=== PATIENT | male | born 1965 | race Caucasian/White ===

== ENCOUNTER 2019-03-19 08:27 | Inpatient (IN) ==
[2019-03-19] MEDS ORDERED: ALBUTEROL 1.25 MG/3 ML NEB RESP TX PRN (10:43)
[2019-03-19] MEDS ORDERED: ACETAMINOPHEN 325 MG TABLET PO PRN (10:47)
[2019-03-19] MEDS ORDERED: ONDANSETRON 4 MG/2 ML VIAL IV PRN (10:47)
[2019-03-19 11:19] LABS: Basophils % 0.2 % (0.0-0.8); Eosinophils % 0.1 % (0.00-10.9); Hematocrit 57.1 VOL% (42.0-52.0); Hemoglobin 17.8 GM/DL (14.0-18.0); Immature Granulocytes % 0.6 %; Immature Granulocytes Absolute 0.06 #; Lymphocytes # 0.5 10*3/uL (1.4-4.0); Lymphocytes % 4.5 % (21.2-54.2); Mean Corpuscular HGB Conc 31.2 GM/DL (32-36); Mean Corpuscular Volume 91.8 FL (87-102); Monocytes % 0.9 % (1.7-12.7); Neutrophils % 93.7 % (38.7-73.9); Platelet Count 299 T/CUMM (130-400); Red Blood Count 6.22 MC/CUMM (3.8-5.5); White Blood Count 10.5 T/CUMM (4-12)
[2019-03-19] MEDS: ALBUTEROL/IPRATROPIUM 3 ML NEB RESP TX SCH ×2 (11:35→14:50)
[2019-03-19 11:39] LABS: Band Neutrophils 1 % (0-10); Lymphocytes 7 % (20-55); Platelet Estimate Adequate; Segmented Neutrophils 92 % (50-85); Total Cells Counted 100
[2019-03-19 11:43] LABS: Albumin 3.9 G/DL (3.4-5.0); Bilirubin,Total 0.7 MG/DL (0.2-1.0); Calcium 9.3 MG/DL (8.5-10.1); Osmolality,Calculated 288.3 MOS/KG (273-304)
[2019-03-19] MEDS ORDERED: methylPREDNISolone SOD SUC 40 MG/1 ML VIAL IV SCH (12:00)
[2019-03-19 12:53] LABS: ABG Base Excess -1.7 MMOL/L (-2.5-2.5); ABG HCO3 22.4 MMOL/L (20-26); ABG Oxygen Saturation 76.6 % (95-100); ABG PCO2 64.6 MM HG (35-48); ABG PH 7.252 (7.35-7.45); ABG PO2 45.6 MM HG (80-95); ABG TCO2 24.1 MMOL/L (23-27)
[2019-03-19] MEDS: NICOTINE 21 MG/24 HR PATCH TRANSDERM SCH (13:07)
[2019-03-19] MEDS: SERTRALINE 50 MG TABLET PO SCH (13:14)
[2019-03-19] MEDS: LISINOPRIL 10 MG TABLET PO SCH (13:14)
[2019-03-19] MEDS: LEVOFLOXACIN INJ 500 MG in PREMIX 1 EACH IV SCH (17:28)
[2019-03-19] MEDS: guaiFENesin/DM ER 600-30 MG TABLET PO SCH (17:28)
[2019-03-19] MEDS: DORNASE ALFA 2.5 MG/2.5 ML VIAL RESP TX SCH (19:55)
[2019-03-19] MEDS: BUDESONIDE 0.5 MG/2 ML NEB RESP TX SCH (19:55)
[2019-03-19] MEDS: ARFORMOTEROL 15 MCG/2 ML NEB RESP TX SCH (19:55)
[2019-03-19] MEDS: methylPREDNISolone SOD SUC 40 MG/1 ML VIAL IV SCH (21:54)
[2019-03-19] MEDS: MONTELUKAST 10 MG TABLET PO SCH (21:57)
[2019-03-19] MEDS: DOCUSATE SODIUM 100 MG CAPSULE PO SCH (21:57)
[2019-03-19] MEDS: buPROPion SR 100 MG TABLET PO SCH (21:57)
[2019-03-19] MEDS: ENOXAPARIN 40 MG/0.4 ML SYRINGE SUBCUT SCH (21:58)
[2019-03-19] MEDS: traZODone 50 MG TABLET PO PRN (22:03)
[2019-03-20] MEDS: methylPREDNISolone SOD SUC 40 MG/1 ML VIAL IV SCH ×4 (02:57→21:49)
[2019-03-20 04:00] LABS: ABG Base Excess 1.7 MMOL/L (-2.5-2.5); ABG HCO3 25.6 MMOL/L (20-26); ABG Oxygen Saturation 86.4 % (95-100); ABG PCO2 62.6 MM HG (35-48); ABG PO2 55.3 MM HG (80-95); ABG TCO2 26.1 MMOL/L (23-27)
[2019-03-20] MEDS: ALBUTEROL/IPRATROPIUM 3 ML NEB RESP TX SCH ×6 (04:30→23:53)
[2019-03-20 06:11] LABS: Basophils % 0.1 % (0.0-0.8); Hemoglobin 16.4 GM/DL (14.0-18.0); Immature Granulocytes % 0.7 %; Immature Granulocytes Absolute 0.08 #; Lymphocytes # 0.8 10*3/uL (1.4-4.0); Lymphocytes % 7.2 % (21.2-54.2); Mean Corpuscular HGB Conc 30.9 GM/DL (32-36); Mean Corpuscular Volume 91.7 FL (87-102); Mean Platelet Volume 10.1 FL (9.6-12.0); Monocytes % 2.6 % (1.7-12.7); Neutrophils % 89.4 % (38.7-73.9); Platelet Count 252 T/CUMM (130-400); Red Blood Count 5.78 MC/CUMM (3.8-5.5); Red Cell Distribution Width 13.7 % (9.3-17.3); White Blood Count 11.2 T/CUMM (4-12)
[2019-03-20 06:21] LABS: Calcium 8.8 MG/DL (8.5-10.1); Osmolality,Calculated 280.7 MOS/KG (273-304)
[2019-03-20] MEDS: ARFORMOTEROL 15 MCG/2 ML NEB RESP TX SCH ×2 (07:30→19:41)
[2019-03-20] MEDS: BUDESONIDE 0.5 MG/2 ML NEB RESP TX SCH ×2 (07:30→19:41)
[2019-03-20] MEDS: DORNASE ALFA 2.5 MG/2.5 ML VIAL RESP TX SCH ×2 (07:35→19:41)
[2019-03-20] MEDS: buPROPion SR 100 MG TABLET PO SCH ×2 (08:15→21:52)
[2019-03-20] MEDS: MONTELUKAST 10 MG TABLET PO SCH ×2 (08:15→21:53)
[2019-03-20] MEDS: NICOTINE 21 MG/24 HR PATCH TRANSDERM SCH (08:15)
[2019-03-20] MEDS: DOCUSATE SODIUM 100 MG CAPSULE PO SCH ×2 (08:15→21:51)
[2019-03-20] MEDS: guaiFENesin/DM ER 600-30 MG TABLET PO SCH (08:16)
[2019-03-20] MEDS: PANTOPRAZOLE 40 MG TABLET PO SCH (08:16)
[2019-03-20] MEDS: LISINOPRIL 10 MG TABLET PO SCH (08:16)
[2019-03-20] MEDS: SERTRALINE 50 MG TABLET PO SCH (08:16)
[2019-03-20] MEDS: LEVOFLOXACIN INJ 500 MG in PREMIX 1 EACH IV SCH (08:24)
[2019-03-20] MEDS ORDERED: THEOPHYLLINE ER (24 HR) 300 MG CAPSULE PO SCH (09:00)
[2019-03-20] MEDS: THEOPHYLLINE ER (24 HR) 400 MG CAPSULE PO SCH (10:55)
[2019-03-20] MEDS: ENOXAPARIN 40 MG/0.4 ML SYRINGE SUBCUT SCH (21:53)
[2019-03-20] MEDS: traZODone 50 MG TABLET PO PRN (21:53)
[2019-03-21] MEDS: methylPREDNISolone SOD SUC 40 MG/1 ML VIAL IV SCH ×4 (02:38→23:09)
[2019-03-21] MEDS: ALBUTEROL/IPRATROPIUM 3 ML NEB RESP TX SCH ×6 (02:59→23:11)
[2019-03-21 06:19] LABS: Calcium 8.6 MG/DL (8.5-10.1); Osmolality,Calculated 286.4 MOS/KG (273-304)
[2019-03-21 06:35] LABS: Basophils % 0.2 % (0.0-0.8); Eosinophils % 0.1 % (0.00-10.9); Hematocrit 51.4 VOL% (42.0-52.0); Hemoglobin 15.9 GM/DL (14.0-18.0); Immature Granulocytes % 0.7 %; Immature Granulocytes Absolute 0.11 #; Lymphocytes # 0.6 10*3/uL (1.4-4.0); Lymphocytes % 3.6 % (21.2-54.2); Mean Corpuscular HGB Conc 30.9 GM/DL (32-36); Mean Corpuscular Volume 92.4 FL (87-102); Mean Platelet Volume 10.2 FL (9.6-12.0); Monocytes % 2.2 % (1.7-12.7); NRBC # 0.02 10*3/uL; Neutrophils % 93.2 % (38.7-73.9); Platelet Count 265 T/CUMM (130-400); Red Blood Count 5.56 MC/CUMM (3.8-5.5); Red Cell Distribution Width 13.6 % (9.3-17.3); White Blood Count 16.7 T/CUMM (4-12)
[2019-03-21 06:38] LABS: Hypochromasia 1+; Lymphocytes 5 % (20-55); Platelet Estimate Adequate; Segmented Neutrophils 95 % (50-85); Total Cells Counted 100
[2019-03-21] MEDS: BUDESONIDE 0.5 MG/2 ML NEB RESP TX SCH ×2 (07:30→20:06)
[2019-03-21] MEDS: DORNASE ALFA 2.5 MG/2.5 ML VIAL RESP TX SCH ×2 (07:50→20:07)
[2019-03-21] MEDS: ARFORMOTEROL 15 MCG/2 ML NEB RESP TX SCH ×2 (07:50→20:06)
[2019-03-21] MEDS: NICOTINE 21 MG/24 HR PATCH TRANSDERM SCH (09:15)
[2019-03-21] MEDS: LISINOPRIL 10 MG TABLET PO SCH (09:16)
[2019-03-21] MEDS: PANTOPRAZOLE 40 MG TABLET PO SCH (09:16)
[2019-03-21] MEDS: guaiFENesin/DM ER 600-30 MG TABLET PO SCH (09:17)
[2019-03-21] MEDS: MONTELUKAST 10 MG TABLET PO SCH ×2 (09:17→20:38)
[2019-03-21] MEDS: SERTRALINE 50 MG TABLET PO SCH (09:18)
[2019-03-21] MEDS: THEOPHYLLINE ER (24 HR) 400 MG CAPSULE PO SCH (09:18)
[2019-03-21] MEDS: buPROPion SR 100 MG TABLET PO SCH ×2 (09:19→20:38)
[2019-03-21] MEDS: LEVOFLOXACIN INJ 500 MG in PREMIX 1 EACH IV SCH (09:19)
[2019-03-21] MEDS: DOCUSATE SODIUM 100 MG CAPSULE PO SCH ×2 (09:19→20:38)
[2019-03-21] MEDS: ENOXAPARIN 40 MG/0.4 ML SYRINGE SUBCUT SCH (20:38)
[2019-03-21] MEDS: traZODone 50 MG TABLET PO PRN (20:38)
[2019-03-22] MEDS: ALBUTEROL/IPRATROPIUM 3 ML NEB RESP TX SCH ×6 (03:13→23:49)
[2019-03-22] MEDS: methylPREDNISolone SOD SUC 40 MG/1 ML VIAL IV SCH ×2 (04:57→10:03)
[2019-03-22 05:04] LABS: Basophils # 0.1 10*3/uL (0.0-0.2); Basophils % 0.3 % (0.0-0.8); Hemoglobin 15.4 GM/DL (14.0-18.0); Immature Granulocytes % 1.5 %; Immature Granulocytes Absolute 0.27 #; Lymphocytes % 5.8 % (21.2-54.2); Mean Corpuscular HGB Conc 30.8 GM/DL (32-36); Mean Corpuscular Volume 92.1 FL (87-102); Monocytes % 3.8 % (1.7-12.7); Neutrophils % 88.6 % (38.7-73.9); Platelet Count 240 T/CUMM (130-400); Red Blood Count 5.43 MC/CUMM (3.8-5.5); Red Cell Distribution Width 13.9 % (9.3-17.3); White Blood Count 17.9 T/CUMM (4-12)
[2019-03-22 05:27] LABS: Calcium 8.5 MG/DL (8.5-10.1); Osmolality,Calculated 288.3 MOS/KG (273-304)
[2019-03-22] MEDS: DORNASE ALFA 2.5 MG/2.5 ML VIAL RESP TX SCH ×2 (07:39→19:08)
[2019-03-22] MEDS: BUDESONIDE 0.5 MG/2 ML NEB RESP TX SCH ×2 (07:39→19:08)
[2019-03-22] MEDS: ARFORMOTEROL 15 MCG/2 ML NEB RESP TX SCH ×2 (07:39→19:08)
[2019-03-22] MEDS: DOCUSATE SODIUM 100 MG CAPSULE PO SCH ×2 (10:03→20:39)
[2019-03-22] MEDS: guaiFENesin/DM ER 600-30 MG TABLET PO SCH (10:03)
[2019-03-22] MEDS: PANTOPRAZOLE 40 MG TABLET PO SCH (10:03)
[2019-03-22] MEDS: LISINOPRIL 10 MG TABLET PO SCH (10:03)
[2019-03-22] MEDS: SERTRALINE 50 MG TABLET PO SCH (10:03)
[2019-03-22] MEDS: MONTELUKAST 10 MG TABLET PO SCH ×2 (10:04→20:39)
[2019-03-22] MEDS: NICOTINE 21 MG/24 HR PATCH TRANSDERM SCH (10:04)
[2019-03-22] MEDS: LEVOFLOXACIN INJ 500 MG in PREMIX 1 EACH IV SCH (10:04)
[2019-03-22] MEDS: buPROPion SR 100 MG TABLET PO SCH ×2 (10:17→20:39)
[2019-03-22] MEDS: THEOPHYLLINE ER (24 HR) 400 MG CAPSULE PO SCH (10:17)
[2019-03-22] MEDS: ENOXAPARIN 40 MG/0.4 ML SYRINGE SUBCUT SCH (20:39)
[2019-03-22] MEDS ORDERED: methylPREDNISolone SOD SUC 40 MG/1 ML VIAL IV SCH (22:00)
[2019-03-23] MEDS: ALBUTEROL/IPRATROPIUM 3 ML NEB RESP TX SCH ×6 (03:32→23:46)
[2019-03-23 06:16] LABS: Basophils # 0.1 10*3/uL (0.0-0.2); Basophils % 0.5 % (0.0-0.8); Hematocrit 51.7 VOL% (42.0-52.0); Immature Granulocytes % 2.4 %; Immature Granulocytes Absolute 0.38 #; Lymphocytes # 1.3 10*3/uL (1.4-4.0); Lymphocytes % 8.5 % (21.2-54.2); Mean Corpuscular HGB Conc 30.2 GM/DL (32-36); Mean Platelet Volume 9.8 FL (9.6-12.0); NRBC # 0.03 10*3/uL; Neutrophils % 83.6 % (38.7-73.9); Platelet Count 220 T/CUMM (130-400); Red Blood Count 5.56 MC/CUMM (3.8-5.5); Red Cell Distribution Width 13.9 % (9.3-17.3); White Blood Count 15.7 T/CUMM (4-12)
[2019-03-23 06:50] LABS: Calcium 8.4 MG/DL (8.5-10.1); Osmolality,Calculated 279.5 MOS/KG (273-304)
[2019-03-23 07:02] LABS: Hemoglobin 15.8 GM/DL (14.0-18.0)
[2019-03-23] MEDS: BUDESONIDE 0.5 MG/2 ML NEB RESP TX SCH ×2 (07:33→19:01)
[2019-03-23] MEDS: ARFORMOTEROL 15 MCG/2 ML NEB RESP TX SCH ×2 (07:43→19:00)
[2019-03-23] MEDS: DORNASE ALFA 2.5 MG/2.5 ML VIAL RESP TX SCH ×2 (07:49→19:01)
[2019-03-23] MEDS: NICOTINE 21 MG/24 HR PATCH TRANSDERM SCH (09:37)
[2019-03-23] MEDS: LEVOFLOXACIN INJ 500 MG in PREMIX 1 EACH IV SCH (09:38)
[2019-03-23] MEDS: PANTOPRAZOLE 40 MG TABLET PO SCH (09:38)
[2019-03-23] MEDS: SERTRALINE 50 MG TABLET PO SCH (09:38)
[2019-03-23] MEDS: DOCUSATE SODIUM 100 MG CAPSULE PO SCH ×2 (09:38→21:14)
[2019-03-23] MEDS: MONTELUKAST 10 MG TABLET PO SCH ×2 (09:38→21:14)
[2019-03-23] MEDS: predniSONE 20 MG TABLET PO SCH (09:38)
[2019-03-23] MEDS: LISINOPRIL 10 MG TABLET PO SCH (09:38)
[2019-03-23] MEDS: THEOPHYLLINE ER (24 HR) 400 MG CAPSULE PO SCH (09:38)
[2019-03-23] MEDS: buPROPion SR 100 MG TABLET PO SCH ×2 (09:38→21:13)
[2019-03-23] MEDS: guaiFENesin/DM ER 600-30 MG TABLET PO SCH (09:38)
[2019-03-23] MEDS: ENOXAPARIN 40 MG/0.4 ML SYRINGE SUBCUT SCH (21:14)
[2019-03-23] MEDS: traZODone 50 MG TABLET PO PRN (21:14)
[2019-03-24] MEDS: ALBUTEROL/IPRATROPIUM 3 ML NEB RESP TX SCH ×2 (03:13→06:54)
[2019-03-24 05:40] LABS: Basophils # 0.1 10*3/uL (0.0-0.2); Basophils % 0.8 % (0.0-0.8); Eosinophils # 0.1 10*3/uL (0.0-0.87); Eosinophils % 0.5 % (0.00-10.9); Hematocrit 49.4 VOL% (42.0-52.0); Hemoglobin 15.2 GM/DL (14.0-18.0); Immature Granulocytes % 4.9 %; Immature Granulocytes Absolute 0.65 #; Lymphocytes # 2.6 10*3/uL (1.4-4.0); Lymphocytes % 19.6 % (21.2-54.2); Mean Corpuscular HGB Conc 30.8 GM/DL (32-36); Mean Corpuscular Volume 91.1 FL (87-102); Mean Platelet Volume 10.2 FL (9.6-12.0); Monocytes % 6.4 % (1.7-12.7); Neutrophils % 67.8 % (38.7-73.9); Platelet Count 206 T/CUMM (130-400); Red Blood Count 5.42 MC/CUMM (3.8-5.5); White Blood Count 13.3 T/CUMM (4-12)
[2019-03-24 06:08] LABS: Eosinophils 2 % (0-10); Hypochromasia 1+; Lymphocytes 17 % (20-55); Platelet Estimate Adequate; Segmented Neutrophils 74 % (50-85); Total Cells Counted 100
[2019-03-24 06:09] LABS: Calcium 8.4 MG/DL (8.5-10.1)
[2019-03-24] MEDS: ARFORMOTEROL 15 MCG/2 ML NEB RESP TX SCH (06:54)
[2019-03-24] MEDS: BUDESONIDE 0.5 MG/2 ML NEB RESP TX SCH (06:54)
[2019-03-24] MEDS: DORNASE ALFA 2.5 MG/2.5 ML VIAL RESP TX SCH (07:12)
[2019-03-24 07:56] VITALS: BP 108/70
[2019-03-24] MEDS: LEVOFLOXACIN INJ 500 MG in PREMIX 1 EACH IV SCH (09:55)
[2019-03-24] MEDS: NICOTINE 21 MG/24 HR PATCH TRANSDERM SCH (10:02)
[2019-03-24] MEDS: guaiFENesin/DM ER 600-30 MG TABLET PO SCH (10:06)
[2019-03-24] MEDS: DOCUSATE SODIUM 100 MG CAPSULE PO SCH (10:06)
[2019-03-24] MEDS: LISINOPRIL 10 MG TABLET PO SCH (10:07)
[2019-03-24] MEDS: predniSONE 20 MG TABLET PO SCH (10:07)
[2019-03-24] MEDS: PANTOPRAZOLE 40 MG TABLET PO SCH (10:08)
[2019-03-24] MEDS: MONTELUKAST 10 MG TABLET PO SCH (10:08)
[2019-03-24] MEDS: THEOPHYLLINE ER (24 HR) 400 MG CAPSULE PO SCH (10:09)
[2019-03-24] MEDS: buPROPion SR 100 MG TABLET PO SCH (10:16)
[2019-03-24] MEDS: SERTRALINE 50 MG TABLET PO SCH (10:16)
== END 2019-03-24 11:23 | disposition home or self-care (01) | DRG 140 ==
LOC: N.2E → SUATTDRO 10:38
PROVIDERS: ADMIT Internal Medicine; ATTEND Internal Medicine